=== PATIENT | female | born 1945 | race Caucasian/White ===

== ENCOUNTER → 2019-03-26 | Outpatient (CLI) | payer MEDICARE, BC ==
[~2019-03-26] MED LIST: Aspir 8181 MG PO; FAMO40 PO; INSULANPEN SC; METF500 PO; METO50ER PO; Novolog100 UNIT/2 SC; OXYACE5T PO; ROSU10TA PO
== END | disposition home or self-care (01) ==
LOC: LAB 13:50 → LAB SHORT 13:50
DX: N39.0 Urinary tract infection, site not specified (principal)
CPT/HCPCS: 87086

== ENCOUNTER → 2019-05-09 | Outpatient (CLI) | payer MEDICARE, BC | END | disposition home or self-care (01) | LOC: PLD 08:24 → LAB SHORT 08:24 | DX: C44.01 Basal cell carcinoma of skin of lip (principal) | CPT/HCPCS: 88305 ==

== ENCOUNTER → 2020-08-05 | Outpatient (CLI) | payer MEDICARE, BC | END | disposition home or self-care (01) | LOC: LAB 11:13 → LAB SHORT 11:13 | DX: C44.311 Basal cell carcinoma of skin of nose (principal) | CPT/HCPCS: 88305 ==

== ENCOUNTER → 2020-11-23 | Outpatient (CLI) | payer MEDICARE | END | disposition home or self-care (01) | LOC: PLD 11:30 → LAB SHORT 11:30 | DX: D22.5 Melanocytic nevi of trunk (principal) | CPT/HCPCS: 88305 ==

== ENCOUNTER → 2021-02-03 | Outpatient (CLI) | payer MEDICARE | END | disposition home or self-care (01) | LOC: LAB SHORT 07:36 | DX: L57.0 Actinic keratosis (principal) | CPT/HCPCS: 88305 ==

== ENCOUNTER → 2023-08-23 | Outpatient (CLI) | payer MEDICARE ==
[2023-08-27 06:11] LABS: HEMOGLOBIN A1C 8.1 % (4.8-5.6)
== END ==
LOC: LAB 16:17 → LAB SHORT 16:17
PROVIDERS: Family Medicine
DX: E11.65 Type 2 diabetes mellitus with hyperglycemia (principal)
CPT/HCPCS: 83036

== ENCOUNTER 2023-08-28 17:22 | Inpatient (IN) | payer MEDICARE ==
[~2023-08-28] VITALS: Ht 160 cm; Wt 79.8 kg
[2023-08-28 20:37] LABS: BASOPHILS ABSOLUTE AUTO 0.08 K/mm3 (0.00-0.23); BASOPHILS PERCENT AUTO 1 % (0-2); EOSINOPHILS ABSOLUTE AUTO 0.25 K/mm3 (0.00-0.68); EOSINOPHILS PERCENT AUTO 2 % (0-6); Hematocrit 45.6 % (33.0-51.0); Hemoglobin 15.2 g/dL (11.5-16.0); IMMATURE GRAN ABSOLUTE AUTO 0.04 K/mm3 (0.00-0.10); IMMATURE GRAN PERCENT AUTO 0 % (0-1); LYMPHOCYTES ABSOLUTE AUTO 2.27 K/mm3 (0.84-5.20); LYMPHOCYTES PERCENT AUTO 22 % (21-46); MONOCYTES ABSOLUTE AUTO 0.76 K/mm3 (0.16-1.47); MONOCYTES PERCENT AUTO 7 % (4-13); Mean Corpuscular HGB 29.9 pg (26.0-34.0); Mean Corpuscular HGB Conc 33.3 g/dL (31.5-36.5); Mean Corpuscular Volume 90 fL (80-100); Mean Platelet Volume 10.3 fL (9.1-12.4); NEUTROPHILS PERCENT AUTO 67 % (41-73); Platelet Count 263 K/mm3 (150-400); RDW Coefficient Variation 13.2 % (11.7-14.2); RDW Standard Deviation 43.7 fL (35.1-46.3); Red Blood Cell Count 5.09 M/mm3 (3.80-5.20)
[2023-08-28 21:05] LABS: International Normalized Ratio 1.07; Prothrombin Time Results 11.2 Sec (9.7-11.5)
[2023-08-28 21:08] LABS: Albumin, Blood 3.5 g/dL (3.4-5.0); Albumin/Globulin Ratio 0.8 (0.8-1.8); Bilirubin, Total 0.2 mg/dL (0.1-1.0); Bun/Creatinine Ratio 32.3 (12.0-20.0); Calcium, Blood 9.3 mg/dL (8.5-10.1); Creatinine, Blood 0.5 mg/dL (0.40-1.00); Globulin, Blood 4.4 g/dL (2.2-4.0); Potassium, Blood 4.1 mmol/L (3.5-5.5); Total Protein, Blood 7.9 g/dL (6.4-8.2)
[2023-08-28 22:03] VITALS: BP 153/79
[2023-08-29] VITALS (17 sets, daily range): BP systolic 105–138; BP diastolic 49–69
--- NOTE | 2023-08-29 04:04 | NUR ---
SHIFT SUMMARY NEW ADMIT WITH LEFT FEMUR FX. ALERT AND ORIENTED X4. 0.5 MG IV DILAUDID FOR PAIN MANAGEMENT. NPO SINCE MIDNIGHT WITH IVF INFUSING PER ORDERS. KEBEDE PATENT AND DRAINING YELLOW URINE. USES CALL LIGHT APPROPRIATELY. PLAN FOR ORTHO CONSULT TODAY.
--- NOTE | 2023-08-29 08:48 | NUR ---
PT REFUSED PO METOPROLOL. PT STATES SHE DOES NOT TAKE AT HOME. MEDICATION WAS DC'D FROM HOME MED REC.
--- NOTE | 2023-08-29 17:17 | NUR ---
PT ARRIVED BACK FROM PACU AT APROX 1700. BULKY DRESSING X'S 2 TO L HIP C/D/I. PT DENIES PAIN UPON ARRIVAL TO UNIT. APPEARS TO BE RESTING COMFORTABLY UPON ARRIVAL.PT HAS FULL SENSATION AND MOVEMENT TO BLE. IVF STARTED PER EMAR. KEBEDE PATENT, DRAINING CLEAR YELLOW URINE. PT GIVEN CLEAR LIQUIDS, WILL ADVANCE TOLERATED.
[2023-08-30 00:10] VITALS: BP 113/57
[2023-08-30 04:01] VITALS: BP 113/52
--- NOTE | 2023-08-30 04:44 | NUR ---
SHIFT SUMMARY S/P LEFT HIP PINNING. BULKY DRESSINGS REMAIN CDI. PT ABLE TO REPOSITION SELF IN BED. PLAN TO WORK WITH PT/OT TODAY. KEBEDE PATENT WITH DARK YELLOW URINE. IVF INFUSING PER ORDERS. 1 ROXICODONE + TORADOL FOR PAIN MANAGEMENT. USES CALL LIGHT APPROPRIATELY.
[2023-08-30 04:55] LABS: BASOPHILS ABSOLUTE AUTO 0.02 K/mm3 (0.00-0.23); BASOPHILS PERCENT AUTO 0 % (0-2); EOSINOPHILS PERCENT AUTO 0 % (0-6); Hematocrit 37.5 % (33.0-51.0); Hemoglobin 12.4 g/dL (11.5-16.0); IMMATURE GRAN ABSOLUTE AUTO 0.03 K/mm3 (0.00-0.10); IMMATURE GRAN PERCENT AUTO 0 % (0-1); LYMPHOCYTES ABSOLUTE AUTO 1.07 K/mm3 (0.84-5.20); LYMPHOCYTES PERCENT AUTO 11 % (21-46); MONOCYTES ABSOLUTE AUTO 0.92 K/mm3 (0.16-1.47); MONOCYTES PERCENT AUTO 9 % (4-13); Mean Corpuscular HGB Conc 33.1 g/dL (31.5-36.5); Mean Corpuscular Volume 91 fL (80-100); Mean Platelet Volume 10.5 fL (9.1-12.4); NEUTROPHILS ABSOLUTE AUTO 8.03 K/mm3 (1.96-9.15); NEUTROPHILS PERCENT AUTO 80 % (41-73); Platelet Count 211 K/mm3 (150-400); RDW Coefficient Variation 13.1 % (11.7-14.2); RDW Standard Deviation 43.5 fL (35.1-46.3); Red Blood Cell Count 4.13 M/mm3 (3.80-5.20); White Blood Cell Count 10.07 K/mm3 (4.00-11.30)
[2023-08-30 05:29] LABS: Bun/Creatinine Ratio 34.2 (12.0-20.0); Calcium, Blood 8.5 mg/dL (8.5-10.1); Creatinine, Blood 0.53 mg/dL (0.40-1.00); Potassium, Blood 4.4 mmol/L (3.5-5.5)
[2023-08-30 07:29] VITALS: BP 108/76
--- NOTE | 2023-08-30 10:21 | NUR ---
PT C/O L LEG SPASMS W/ MOVEMENT DUE TO "SCIATICA PAIN" REQUESTING MUSCLE RELAXANT, DR. MILLER NOTIFIED, PT UNABLE TO WORK WITH PT/OT THIS AM, MEDICATED FOR PAIN PER EMAR, REPOSITIONED IN BED, ICE PACK TO L HIP.
--- NOTE | 2023-08-30 11:03 | NUR ---
Pt. is awake in bed when she welcomes my visit. Pt. is pleasant and I facilitate a life review. Pt. shares details of her historic family homestead, and that she has had the support of her local leaders. Pt. displays evidence of awareness, engagement, and trust. Rapport is established. Pt. verbalized gratitude for the spiritual care visit, and welcomed this glass glazier to return.
--- NOTE | 2023-08-30 13:35 | NUR ---
WORKING WITH OT.
[2023-08-30 15:26] VITALS: BP 109/53
--- NOTE | 2023-08-30 15:44 | NUR ---
OOB TO THE RECLINER CHAIR THIS AFTERNOON, TOLERATED FAIRLY WELL, L HIP DSG CHANGED BY DR. DODSON THIS AFTERNOON, REPORT GIVEN TO KAREN MENDOZA RN.
[2023-08-30 19:51] VITALS: BP 96/80
--- NOTE | 2023-08-30 20:01 | NUR ---
SINCE ASSUMING CARE PT WAS ASSISTED BACK TO BED AFTER DINNER. CONT's TO C/O SCIATIC PAIN & DENIES "BONE PAIN".
[2023-08-31 03:59] VITALS: BP 108/50
--- NOTE | 2023-08-31 05:19 | NUR ---
SHIFT SUMMARY POD 2 L HIP PINNING PT ABLE TO SLEEP T/O NIGHT. PAIN MANAGED PER EMAR. KEBEDE IS PATENT AND DRAINING YELLOW URINE. TOLERATING PO INTAKE. AQUACEL TO L HIP C/D/I. DENIES N/T IN EXT'S. NO OTHER COCERNS AT THIS TIME. CALL LIGHT WITHIN REACH.
[2023-08-31 07:49] VITALS: BP 104/68
[2023-08-31 08:44] VITALS: BP 109/45
--- NOTE | 2023-08-31 11:53 | NUR ---
Pt. is sitting in a chair and using a strap to lift her leg when she welcomes my visit. I had visited the Pt. the previous day so rapport is re-established. Pt. displayed evidenc of being aware, engaged and motivated to make th emost of her rehab visit. Facilitated a life review and listened with interest and empathy. Spouse aqrrived and was updated by the Pt. on plans to discharge to [facility]. Pt. and spouse both verbalized gratitude for the spiritual care visit.
[2023-08-31 16:08] VITALS: BP 113/55
--- NOTE | 2023-08-31 16:53 | NUR ---
SHIFT SUMMARY PT A&OX4, VSS/RA, DINA PO, VOIDING, AMB 1 PP MOD ASSIST FWW/GB, PAIN MANAGED, LFA IV SL. POD2 L HIP PINNING, AQUACEL CDI, TTWB. WILL REPORT TO ONCOMING NOC RN.
[2023-08-31 18:51] VITALS: BP 97/41
[2023-08-31 21:06] VITALS: BP 109/38
--- NOTE | 2023-09-01 05:15 | NUR ---
SHIFT SUMMARY PT ABLE TO REST T/O NIGHT. PAIN MANAGED PER EMAR. PT VOIDING UP TO THE BSC DURING THE NIGHT. 1 PERS ASST WITH GAIT BELT AND WALKER. PT ABLE TO TRANSFER USING TOE TOUCH WB. AQUACEL TO L HIP HAS SOME SHADOWING. DENIES N/T IN EXT'S. VSS. NO OTHER CONCERNS AT THIS TIME. CALL LIGHT WITHIN REACH.
[2023-09-01 05:33] VITALS: BP 123/55
[2023-09-01 07:11] VITALS: BP 133/73
[2023-09-01 14:21] VITALS: BP 122/51
--- NOTE | 2023-09-01 15:14 | NUR ---
SHIFT SUMMARY: POD 3 LEFT HIP NAILING PATIENT IS A&OX4. VS ARE WNL AND IS ON RA. PAIN IS MANAGED WITH THE PO ROBAXIN, GABAPENTIN, AND IV TORADOL. HER LEFT HIP HAS X2 AQUACEL DRESSINGS THAT ARE C/D/I. PATIENT DENIES NUMBNESS OR TINGLING IN ALL EXTREMITIES. SHE IS ABLE TO MOVE ALL FINGERS AND TOES WHEN ASKED. PATIENT COMPLYS TO HER TOE TOUCH WEIGHT BEARING STATUS ON THAT LEFT HIP. SHE IS A SBA WITH FWW AND GAIT BELT FROM THE [id number]. PATIENT IS TOLERATING PO INTAKE AND IS VOIDING/ PASSING GAS. SHE DID HAVE A SMALL BROWN BM EARLIER TODAY. PATIENT IS LAYING IN BED WITH CALL LIGHT IN REACH.
--- NOTE | 2023-09-01 16:49 | NUR ---
DISCHARGE NOTE: PATIENT IS BEING DISCHARGED TO [facility]. THIS NURSE JUST GAVE REPORT TO TATA KRUEGER FROM [facility] AND AFTER REPORT TATA KRUEGER HAD NO FURTHER QUESTIONS AT THIS TIME. PAIN IS MANAGED WITH PO OXY AND ROBAXIN. HER LEFT HIP HAS X2 AQUACELS THAT ARE C/D/I. HER LEFT FOREARM HAS SANJIV WRAP FROM WHEN SHE FELL AND GOT AN ABRASION THAT IS ALSO C/D/I. SHE DENIES NUMBNESS OR TINGLING TO ALL EXTREMITIES. SHE IS A SBA WITH FWW AND GAIT BELT. SHE IS TOE TOUCH WEIGHT BEARING TO THE LEFT HIP. PATIENT IS TOLERATING PO INTAKE, VOIDING, AND PASSING GAS/HAS BEEN HAVING BM'S. PATIENT IS LAYING IN BED WITH CALL LIGHT IN REACH. TRANSPORT IS TO ARRIVE TO TAKE HER TO [facility] AT 1745 TONIGHT.
--- NOTE | 2023-09-01 18:27 | NUR ---
TRANSPORT JUST ARRIVED WITH A WHEELCHAIR TO TAKE PATIENT TO [facility]. PATIENT WAS A SBA WITH FWW AND GAIT BELT TO THE WHEELCHAIR. IV WAS TAKEN OUT AND WNL. HER PERSONAL ITEMS IN THE ROOM ARE GATHERED. SPOUSE IS WALKING WITH TRANSPORT.
== END 2023-09-01 18:29 | DRG 482 ==
LOC: ER 17:22 → SURS 21:01
PROVIDERS: Emergency Medicine; Nurse Practitioner Acute Care; Orthopaedic Surgery; ADMIT Internal Medicine
PROC: 0QS736Z Reposition Left Upper Femur with Intramedullary Internal Fixation Device, Percutaneous Approach (ICD-10-PCS; principal; 2023-08-29 13:30)
DX: S72.145A Nondisplaced intertrochanteric fracture of left femur, initial encounter for closed fracture (principal); K21.9 Gastro-esophageal reflux disease without esophagitis; E78.5 Hyperlipidemia, unspecified; M54.32 Sciatica, left side; E11.9 Type 2 diabetes mellitus without complications; Z53.1 Procedure and treatment not carried out because of patient's decision for reasons of belief and group pressure; Z79.4 Long term (current) use of insulin; Z79.82 Long term (current) use of aspirin; Z79.899 Other long term (current) drug therapy; W18.39XA Other fall on same level, initial encounter; Y93.73 Activity, racquet and hand sports
CPT/HCPCS: 36415; 51702; 73030; 73502; 80048; 80053; 82947; 83735; 85025; 85610; 93005; 93010; 94760; 94762; 96374; 96375; 97110; 97162; 97165; 97530; 97535; 99285-25; A9270; C1713; C1769; J0690; J1100; J1170; J1650; J1815; J1885; J2250; J2405; J2704; J3010; J3480; J7030; J7120

== ENCOUNTER 2023-09-14 11:31 | Emergency (ER) | payer MEDICARE ==
[~2023-09-14] VITALS: Ht 160 cm; Wt 77.1 kg
[2023-09-14] MEDS ORDERED: Aspir 8181 MG PO (12:05)
[2023-09-14] MEDS ORDERED: ACET325 PO (12:05)
[2023-09-14] MEDS ORDERED: DOCU100 PO (12:05)
[2023-09-14] MEDS ORDERED: BISA10S (12:06)
[2023-09-14] MEDS ORDERED: METO100ER PO (12:06)
[2023-09-14] MEDS ORDERED: GABA100 PO (12:06)
[2023-09-14] MEDS ORDERED: FAMO20 PO (12:06)
[2023-09-14] MEDS ORDERED: GABA300 PO (12:06)
[2023-09-14] MEDS ORDERED: HUMALOG100 UNIT/1 SC (12:07)
[2023-09-14] MEDS ORDERED: ONDA4ODT (12:08)
[2023-09-14] MEDS ORDERED: OMEP20ER PO (12:08)
[2023-09-14] MEDS ORDERED: Robaxin750 MG PO (12:08)
[2023-09-14] MEDS ORDERED: SENN187 PO (12:09)
[2023-09-14] MEDS ORDERED: Crestor20 MG PO (12:09)
[2023-09-14] MEDS ORDERED: OXYC5 PO (12:09)
[2023-09-14 12:45] LABS: Source, Urine Clean Catch
[2023-09-14 12:59] LABS: Bilirubin, Urine Neg (Neg); Blood, Urine Neg (Neg); Glucose Qualitative, Urine Neg (Neg); Ketones, Urine 1+ (Neg); Leukocyte Esterase, Urine 1+ (Neg); Nitrite, Urine Neg (Neg); Protein, Urine 1+ (Neg); Specific Gravity, Urine 1.015 (1.003-1.022); Urobilinogen, Urine 1+ (Normal)
[2023-09-14 13:08] LABS: BASOPHILS ABSOLUTE AUTO 0.06 K/mm3 (0.00-0.23); BASOPHILS PERCENT AUTO 1 % (0-2); EOSINOPHILS ABSOLUTE AUTO 0.34 K/mm3 (0.00-0.68); EOSINOPHILS PERCENT AUTO 3 % (0-6); Hematocrit 41.3 % (33.0-51.0); Hemoglobin 13.8 g/dL (11.5-16.0); IMMATURE GRAN ABSOLUTE AUTO 0.04 K/mm3 (0.00-0.10); IMMATURE GRAN PERCENT AUTO 0 % (0-1); LYMPHOCYTES ABSOLUTE AUTO 1.23 K/mm3 (0.84-5.20); LYMPHOCYTES PERCENT AUTO 12 % (21-46); MONOCYTES ABSOLUTE AUTO 0.86 K/mm3 (0.16-1.47); MONOCYTES PERCENT AUTO 8 % (4-13); Mean Corpuscular HGB 29.7 pg (26.0-34.0); Mean Corpuscular HGB Conc 33.4 g/dL (31.5-36.5); Mean Corpuscular Volume 89 fL (80-100); Mean Platelet Volume 10.1 fL (9.1-12.4); NEUTROPHILS ABSOLUTE AUTO 8.14 K/mm3 (1.96-9.15); NEUTROPHILS PERCENT AUTO 76 % (41-73); Platelet Count 375 K/mm3 (150-400); RDW Coefficient Variation 12.9 % (11.7-14.2); RDW Standard Deviation 42.3 fL (35.1-46.3); Red Blood Cell Count 4.64 M/mm3 (3.80-5.20); White Blood Cell Count 10.67 K/mm3 (4.00-11.30)
[2023-09-14 13:13] LABS: Appearance, Urine Hazy (Clear); Color, Urine Yellow (P-Yellow); White Blood Cells, Urine 0-2 /hpf (0-5)
[2023-09-14 13:13] LABS: Albumin, Blood 2.6 g/dL (3.4-5.0); Albumin/Globulin Ratio 0.5 (0.8-1.8); Bilirubin, Total 1.3 mg/dL (0.1-1.0); Calcium, Blood 8.6 mg/dL (8.5-10.1); Creatinine, Blood 0.5 mg/dL (0.40-1.00); Globulin, Blood 4.9 g/dL (2.2-4.0); Potassium, Blood 4.1 mmol/L (3.5-5.5); Total Protein, Blood 7.5 g/dL (6.4-8.2)
[2023-09-14 13:14] LABS: Bacteria Rare /hpf; Red Blood Cells, Urine 0-2 /hpf (0-2); Squamous Epithelial Cells Few /hpf (Few)
[2023-09-14 15:18] VITALS: BP 124/53
[2023-09-14] MEDS ORDERED: ONDA4ODT MM (15:36)
[2023-09-16 10:52] LABS: HEPATITIS A ANTIBODY, IGM Negative (Negative); HEPATITIS B CORE ANTIBODY, IGM Negative (Negative); HEPATITIS B SURFACE ANTIGEN Negative (Negative); HEPATITIS C AB CIA INTERP Negative (Negative); HEPATITIS C ANTIBODY CIA INDEX 0.11 IV
== END 2023-09-14 15:50 | disposition home or self-care (01) ==
LOC: ER 11:31
PROVIDERS: Physician Assistant
DX: R10.9 Unspecified abdominal pain (principal); D72.829 Elevated white blood cell count, unspecified; E11.9 Type 2 diabetes mellitus without complications; Z79.4 Long term (current) use of insulin
CPT/HCPCS: 74177; 80053; 80074; 81001; 83690; 85025; 96360-59; 96361; 99284-25; A9270; J7120; Q9967

== ENCOUNTER → 2025-02-17 | Outpatient (CLI) | payer MEDICARE ==
[~2025-02-17] MED LIST changes: +ACET325 PO; +BISA10S; +Crestor20 MG PO; +DOCU100 PO; +FAMO20 PO; +GABA100 PO; +GABA300 PO; +HUMALOG100 UNIT/1 SC; +METO100ER PO; +OMEP20ER PO; +ONDA4ODT; +ONDA4ODT MM; +OXYC5 PO; +Robaxin750 MG PO; +SENN187 PO
== END ==
LOC: LAB SHORT 16:09 → LAB 16:09
DX: N39.0 Urinary tract infection, site not specified (principal)
CPT/HCPCS: 87086

== ENCOUNTER → 2025-08-18 | Outpatient (CLI) | payer MEDICARE | END | disposition home or self-care (01) | LOC: LAB 16:07 → LAB SHORT 16:07 | DX: N39.0 Urinary tract infection, site not specified (principal) | CPT/HCPCS: 87077; 87086; 87186 ==